=== PATIENT | male | born 1970 | race Caucasian/White ===

== ENCOUNTER 2023-01-26 06:53 | Day surgery (SDC) | payer BC, OTHER ==
[~2023-01-26 06:53] MED LIST: Sodium Chloride 0.9% 10 ML Syringe FLUSH PRN
[2023-01-26] MEDS ORDERED: Midazolam 1 MG/ML 2 ML SDV IV ONE (06:54)
[2023-01-26] MEDS ORDERED: fentaNYL 100 MCG/2 ML SDV IV ONE (06:54)
[2023-01-26] MEDS ORDERED: Propofol 200 MG/20 ML SDV IV ONE (06:54)
[2023-01-26] MEDS: Lactated Ringers 1,000 ML IV SCH (07:50)
[2023-01-26] MEDS: Simethicone Drops 40 MG/0.6 ML 30 ML Bottle ONE (07:58)
== END 2023-01-26 09:20 | disposition home or self-care (01) ==
LOC: FB.SDS 06:53
PROVIDERS: ATTEND Surgery
DX: Z12.11 Encounter for screening for malignant neoplasm of colon (principal); K57.30 Diverticulosis of large intestine without perforation or abscess without bleeding; Z87.891 Personal history of nicotine dependence
CPT/HCPCS: 00812; A9270-GY; J2250; J2704; J3010; J7120